=== PATIENT | female | born 1965 | race Two or more races ===

== ENCOUNTER 2021-09-20 13:37 | Outpatient (REF) | payer MEDICAID, SELFPAY ==
[2021-09-20 14:58] LABS: Binax Now Covid-19 Ag Negative (Negative)
[2021-09-20 14:59] LABS: Binax Internal Control QC Valid
== END 2021-09-20 13:38 | disposition home or self-care (01) ==
LOC: HO.LAB 13:37
PROVIDERS: Visit Provider Internal Medicine
DX: Z20.822 Contact with and (suspected) exposure to COVID-19 (principal)
CPT/HCPCS: C9803